=== PATIENT | male | born 1985 | race Caucasian/White ===

== ENCOUNTER 2019-06-10 10:23 | Emergency (ER) | payer BC ==
[2019-06-10] MEDS ORDERED: Hydromorphone 1 mg/ml Ampule IV ONE (10:31)
[2019-06-10] MEDS ORDERED: TORAdol 30 mg Injection IV ONE (10:32)
[2019-06-10] MEDS ORDERED: Ativan 0.5 MG PO ONE (10:32)
--- NOTE | 2019-06-10 10:36 | ERPHSYRPT ---
- History of Present Illness Time Seen by Provider: 06/10/19 10:33 Source: patient Physician History: mild to mod sudden lower back ache today after coughing, mowed the yard yesterday, hx lower back problems, see a chiropractor, no fever, no abdominal pain or incont, nonrad, seen by Dr Dwyer and received Norflex today Allergies/Adverse Reactions: No Known Drug Allergies Allergy (Unverified 06/10/19 10:42) - Review of Systems Constitutional: No Fever Respiratory: No Dyspnea Cardiac: No Chest Pain Abdominal/Gastrointestinal: No Abdominal Pain Genitourinary Symptoms: No Incontinence Musculoskeletal: Back Pain, No Neck Pain, No Deformity, No Fall Skin: No Rash Neurological: No Dizziness, No Focal Weakness - Past Medical History Neurological History: No Pertinent History Cardiac History: Hypertension Respiratory History: No Pertinent History Endocrine Medical History: No Pertinent History Musculoskeletal History: No Pertinent History Significant Family History: no pertinent family hx - Nursing Vital Signs Nursing Vital Signs: Initial Vital Signs Temperature 97.5 F 06/10/19 10:25 Pulse Rate 85 06/10/19 10:25 Respiratory Rate 20 06/10/19 10:25 Blood Pressure 111/64 06/10/19 10:25 O2 Sat by Pulse Oximetry 97 06/10/19 10:25 Pain Scale Pain Intensity 4 - Physical Exam General Appearance: no apparent distress Eye Exam: eyes nml inspection Neck Exam: normal inspection Respiratory Exam: No respiratory distress Cardiovascular Exam: normal peripheral pulses Gastrointestinal Exam: soft, No tenderness Back Exam: muscle spasm, No vertebral tenderness Extremity Exam: normal inspection Neurologic Exam: alert, oriented x 3, cooperative Skin Exam: normal color, warm, dry - Course Nursing assessment & vital signs reviewed: Yes - CT Exams Lumbar Spine CT Interpretation: Discussed w/radiologist, Other (L4 to S1 disc bulge) Ordered Tests: Active Orders 24 hr Category Date Time Status IV Insertion STAT Care 06/10/19 10:57 Active Saline Lock STAT Care 06/10/19 10:31 Active LUMBAR SPINE W/O [CT] Stat Exams 06/10/19 10:31 Completed Medication Summary Discontinued Medications Generic Name Dose Route Start Last Admin Trade Name Freq PRN Reason Stop Dose Admin Hydromorphone HCl 1 mg 06/10/19 10:31 06/10/19 10:50 Hydromorphone 1 Mg/Ml Ampule IV 06/10/19 10:32 1 mg STAT ONE Administration Hydromorphone HCl Confirm 06/10/19 10:46 Hydromorphone 1 Mg/Ml Ampule Administered 06/10/19 10:47 Dose 1 mg .ROUTE .STK-MED ONE Ketorolac Tromethamine 30 mg 06/10/19 10:32 06/10/19 10:50 Toradol 30 Mg Injection IV 06/10/19 10:33 30 mg STAT ONE Administration Ketorolac Tromethamine Confirm 06/10/19 10:44 Toradol 30 Mg Injection Administered 06/10/19 10:45 Dose 30 mg .ROUTE .STK-MED ONE Lorazepam 0.5 mg 06/10/19 10:32 06/10/19 10:51 Ativan 0.5 Mg PO 06/10/19 10:33 0.5 mg STAT ONE Administration Lorazepam Confirm 06/10/19 10:45 Ativan 1 Mg Administered 06/10/19 10:46 Dose 1 mg .ROUTE .STK-MED ONE - Progress Progress: unchanged, improved Progress Note: 06/10/19 11:41 motrin, ice rest, see your doctor, norco and ativan and dilaudid warnings given , return if worse - Departure Departure Disposition: Home Clinical Impression: Lumbar disc disease Condition: Stable Critical Care Time: No Referrals: DUANE DWYER MD [Primary Care Provider] - Instructions: Low Back Pain (DC) Prescriptions: Hydrocodone/APAP 5/325 [[place] 5/325 mg] 1 each PO Q4-6HPRN PRN #7 tablet MDD 4 PRN Reason: Moderate To Severe Pain
[2019-06-10] MEDS ORDERED: TORAdol 30 mg Injection ONE (10:44)
[2019-06-10] MEDS ORDERED: Ativan 1 MG ONE (10:45)
[2019-06-10] MEDS ORDERED: Hydromorphone 1 mg/ml Ampule ONE (10:46)
--- NOTE | 2019-06-10 11:30 | XRAY ---
Indication: Low back pain. Multiple contiguous axial images obtained through the lumbar spine. Sagittal and coronal reformatted images obtained. Comparison: None Axial negative for acute fracture, suspicious bony lesions, or spinal canal stenosis. L4-L5 disc level demonstrates mild annular disc bulge minimally effacing the thecal sac and producing minimal bilateral foraminal narrowing. Lesser minimal L5-S1 annular disc bulge without spinal canal or foraminal compromise. Remaining disc levels are unremarkable. Sagittal and coronal reformatted images demonstrates normal lumbar lordosis with minimal levoscoliosis centered at L4-L5. Vertebral body heights/disc spaces maintained. No compression fracture or subluxation. Visualized noncontrasted soft tissues unremarkable. Impression: L4-S1 annular disc bulge and levoscoliosis. Remaining CT lumbar spine is negative. CTDI 34.48
[2019-06-10 11:51] VITALS: BP 120/72; PULSE 75; O2SAT 95
== END 2019-06-10 11:51 | disposition home or self-care (01) ==
LOC: ED 10:23
DX: M51.86 Other intervertebral disc disorders, lumbar region (principal)
CPT/HCPCS: 36000; 72131; 96374; 96375; 99284; J1170; J1885; A9270-GY

== ENCOUNTER 2022-02-18 12:00 | Emergency (ER) | payer BC, OTHER ==
[2022-02-18 12:15] VITALS: BP 120/74
[2022-02-18] MEDS ORDERED: TORAdol 30 mg Injection IM ONE (12:18)
[2022-02-18] MEDS ORDERED: DECADRON 10MG INJ. IM ONE (12:18)
[2022-02-18] MEDS ORDERED: TORAdol 30 mg Injection ONE (12:22)
[2022-02-18] MEDS ORDERED: DECADRON 10MG INJ. ONE (12:22)
--- NOTE | 2022-02-18 12:56 | ERPHSYRPT ---
- History of Present Illness Time Seen by Provider: 02/18/22 12:10 Source: patient Exam Limitations: no limitations Patient Subjective Stated Complaint: pt states "I was brushing my teeth and bent down to wash my mouth when I heard a pop." Triage Nursing Assessment: pt came into the er via ambulance; pt is axo x4; c/o lower back pain; pt states 10/10 pain to lower back; pt denies radiating pain; pt states hx buldging disc; pt denies fall or injury to lower back; strong felicia pedal pulses; good cap refill to BLE; limited ROM to back; vitals wnl; pt received fentayl 100 mcg and 4 mg zofran enroute per medic Physician History: Patient is a 36-year-old male presents to our ED via EMS for evaluation of acute on chronic low back pain. Patient states he was at home brushing his teeth when he felt a pop in his back. Patient states he has a history of bulging disks. Patient rates his pain 10 out of 10. No radiation. No other complaints. No recent back procedures. No fever. No change in bowel bladder function. No saddle anesthesia. Pain described as an ache that is localized. Pain worsened with movement and palpation. Pain improved with rest. Patient voices no other complaints or concerns at this time. Timing/Duration: today Method of Injury: bending Quality: dull Back Pain Location: lumbar spine Severity of Pain-Max: moderate Severity of Pain-Current: moderate Modifying Factors: Improves With: movement Associated Symptoms: denies symptoms, No fever, No urinary incontinence, No loss of bowel control, No nausea, No vomiting, No problems urinating, No light- headedness, No dizziness, No sensory/motor loss, No tingling in legs/feet, No muscle spasms Previous symptoms: same symptoms as today Allergies/Adverse Reactions: No Known Drug Allergies Allergy (Verified 02/18/22 12:02) Home Medications: Atorvastatin Calcium [Lipitor 20MG Tablet] 20 mg PO DAILY 02/18/22 [History] Escitalopram Oxalate 10 mg [Lexapro 10 MG] 20 mg PO DAILY 02/18/22 [History] Fexofenadine HCl [Allergy Relief] 180 mg PO DAILY 02/18/22 [History] Lisinopril 10 mg [Zestril 10 MG] 10 mg PO DAILY 02/18/22 [History] Omeprazole 20 mg PO DAILY 02/18/22 [History] buPROPion HCl [Wellbutrin Sr] 150 mg PO DAILY 02/18/22 [History] Hx Tetanus, Diphtheria Vaccination/Date Given: Yes Hx Influenza Vaccination/Date Given: No Hx Pneumococcal Vaccination/Date Given: No Travel Risk - International Travel Have you traveled outside of the country in past 3 weeks: No - Coronavirus Screening Are you exhibiting any of the following symptoms?: No Close contact with a COVID-19 positive Pt in past 14-21 Days: No - Vaccine Status Have you recieved a Covid-19 vaccination: Yes 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: [employer] - Vaccination Dates Date of 2cond Vaccination (if applicable): unknown - Review of Systems Constitutional: No Symptoms, No Fever, No Chills Eyes: No Symptoms Ears, Nose, & Throat: No Symptoms Respiratory: No Symptoms, No Cough, No Dyspnea Cardiac: No Symptoms, No Chest Pain, No Edema, No Syncope Abdominal/Gastrointestinal: No Symptoms, No Abdominal Pain, No Nausea, No Vomi ting, No Diarrhea Genitourinary Symptoms: No Symptoms, No Dysuria Musculoskeletal: No Symptoms, No Back Pain, No Neck Pain Skin: No Symptoms, No Rash Neurological: No Symptoms, No Dizziness, No Focal Weakness, No Sensory Changes Psychological: No Symptoms Endocrine: No Symptoms Hematologic/Lymphatic: No Symptoms Immunological/Allergic: No Symptoms All Other Systems: Reviewed and Negative - Past Medical History Pertinent Past Medical History: Yes Neurological History: No Pertinent History Cardiac History: High Cholesterol, Hypertension Respiratory History: No Pertinent History Endocrine Medical History: No Pertinent History Musculoskeletal History: No Pertinent History GI Medical History: GERD History: No Pertinent History Psycho-Social History: Depression Male Reproductive Disorders: No Pertinent History Other Medical History: seasonal allergies - Past Surgical History Past Surgical History: Yes Neuro Surgical History: No Pertinent History Cardiac: No Pertinent History Respiratory: No Pertinent History Gastrointestinal: No Pertinent History Genitourinary: No Pertinent History Musculoskeletal: No Pertinent History Male Surgical History: No Pertinent History - Social History Smoking Status: Former smoker Exposure to second hand smoke: No Drug Use: none Patient Lives Alone: No Significant Family History: no pertinent family hx - Nursing Vital Signs Nursing Vital Signs: Initial Vital Signs Temperature 96.7 F 02/18/22 12:00 Pulse Rate 89 02/18/22 12:00 Respiratory Rate 20 02/18/22 12:00 Blood Pressure 120/74 02/18/22 12:00 O2 Sat by Pulse Oximetry 96 02/18/22 12:00 Pain Scale Pain Intensity [Lower Back] 10 Pain Intensity 8 - Physical Exam General Appearance: no apparent distress, alert Eye Exam: PERRL/EOMI, eyes nml inspection Ears, Nose, Throat Exam: normal ENT inspection, TMs normal, pharynx normal Neck Exam: normal inspection, non-tender, supple, full range of motion, No meningismus, No midline tenderness Respiratory Exam: normal breath sounds, lungs clear, airway intact, No respira tory distress Cardiovascular Exam: regular rate/rhythm, normal heart sounds, normal peripheral pulses Gastrointestinal Exam: soft, No tenderness, No mass Back Exam: normal inspection, normal range of motion, No CVA tenderness Extremity Exam: normal inspection, normal range of motion, No calf tenderness, No pedal edema Peripheral Pulses: dorsalis-pedis (R): 2+, dorsalis-pedis (L): 2+ Neurologic Exam: alert, oriented x 3, cooperative, 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 No soft tissue abnormalities.) Ordered Tests: Active Orders 24 hr Category Date Time Status LUMBAR COMPLETE (MIN 4 VIEWS) Stat Exams 02/18/22 12:17 Taken Medication Summary Discontinued Medications Generic Name Dose Route Start Last Admin Trade Name Eva PRN Reason Stop Dose Admin Dexamethasone Sodium Phosphate 6 mg 02/18/22 12:18 02/18/22 12:23 Dexamethasone Sod Phosphate 10 Mg/Ml IM 02/18/22 12:19 6 mg STAT ONE Administration Dexamethasone Sodium Phosphate Confirm 02/18/22 12:22 Dexamethasone Sod Phosphate 10 Mg/Ml Administered 02/18/22 12:23 Dose 10 mg .ROUTE .STK-MED ONE Ketorolac Tromethamine 30 mg 02/18/22 12:18 02/18/22 12:23 Ketorolac Tromethamine 30 Mg/Ml Inj IM 02/18/22 12:19 30 mg STAT ONE Administration Ketorolac Tromethamine Confirm 02/18/22 12:22 Ketorolac Tromethamine 30 Mg/Ml Inj Administered 02/18/22 12:23 Dose 30 mg .ROUTE .STK-MED ONE - Progress Progress: improved Progress Note: Patient reassessed. Pain improved. X-rays negative for acute pathology. Will discharge home. Patient agrees to follow-up with primary care doctor within 48 hours for evaluation. Portions of this note were created with voice recognition technology. There may be grammatical, spelling, punctuation or sound alike errors 02/18/22 14:00 Counseled pt/family regarding: lab results, diagnosis, need for follow-up, rad results - Departure Departure Disposition: Home Clinical Impression: Lumbosacral strain Condition: Stable Critical Care Time: No Referrals: DUANE DWYER MD [Primary Care Provider] - Follow up/PCP as directed Additional Instructions: Discharge/Care Plan JASON OROURKE was seen on 02/18/22 in the Emergency Room. The patient was counseled regarding Diagnosis,Lab results, Imaging studies, need for follow up and when to return to the Emergency Room. Prescriptions given: Discharge Note I have spoken with the patient and/or caregivers. I have explained the patient's condition, diagnosis and treatment plan based on the information available to me at this time. I have answered the patient's and/or caregiver's questions and a ddressed any concerns. The patient and/or caregivers have as good understanding of the patient's diagnosis, condition and treatment plan as can be expected at this point. The vital signs have been stable. The patient's condition is stable and appropriate for discharge from the emergency department. The patient will pursue further outpatient evaluation with the primary care physician or other designated or consulting physician as outlined in the discharge instructions. The patient and/or caregivers are agreeable to this plan of care and follow-up instructions have been explained in detail. The patient and/or caregivers have received these instruction. The patient/and or caregivers are aware that any significant change in condition or worsening of symptoms should prompt an immediate return to this or the closest emergency department or call 911.
[2022-02-18 14:18] VITALS: PULSE 83; O2SAT 98
--- NOTE | 2022-02-19 02:10 | XRAY ---
Exam: Five-view lumbar spine series from 02/18/2022. Comparison: No prior plain films of the lumbar spine. Indication: Complains of low back pain; no known injury. Findings: AP, lateral, both oblique images, and a coned-down lateral film of the lumbosacral junction were obtained. I note 5 [id number] lumbar-type vertebra. The right L1 transverse process is mildly enlarged and deformed, likely developmental/congenital. I also note a slight rotary convexity of the lumbar spine toward the left centered at L3-L4. The sacroiliac joints appear unremarkable. The pedicles are intact. The lumbar interspace heights are well-maintained. No acute fracture, AP subluxation, or spondylolysis is seen. Minimal anterior vertebral endplate spurring is seen at L4-L5 and L5-S1. Impression: 1. Mildly enlarged and deformed right L1 transverse process which appears to be an old finding and is likely congenital/developmental. 2. Slight rotary convexity of the lumbar spine toward the left centered at L3-L4. 3. No acute lumbar spine fracture, spondylolisthesis, or spondylolysis is seen. 4. The lumbar interspace heights are adequately maintained. I do see minimal anterior vertebral endplate spurring at L4-L5 and L5-S1.
== END 2022-02-18 14:25 | disposition home or self-care (01) ==
LOC: ED 12:00
DX: S39.012A Strain of muscle, fascia and tendon of lower back, initial encounter (principal); X50.1XXA Overexertion from prolonged static or awkward postures, initial encounter; Y93.E8 Activity, other personal hygiene; G89.29 Other chronic pain; M54.50 Low back pain, unspecified; E78.5 Hyperlipidemia, unspecified; I10 Essential (primary) hypertension
CPT/HCPCS: 36000; 72110; 96372; 99284; J1100; J1885

== ENCOUNTER 2022-07-09 06:04 | Day surgery (SDC) | payer BC, OTHER ==
[2022-07-09] MEDS ORDERED: Lactated Ringers 1,000 ML IV ONE (06:15)
[2022-07-09] MEDS ORDERED: DIPRIVAN 200 MG/20 ML IV ONE ×2 (06:46→07:41)
[2022-07-09] MEDS ORDERED: Xylocaine-Mpf 2% 5 Ml Vial ONE (06:46)
[2022-07-09] MEDS ORDERED: Lactated Ringers 1,000 ML IV SCH (07:00)
[2022-07-09 08:41] VITALS: BP 131/73; PULSE 79; O2SAT 98
--- NOTE | 2022-07-09 09:47 | OP ---
SURGERY DATE/TIME: 07/09/2022 0735 PREOPERATIVE DIAGNOSES: 1) Persistent gastroesophageal reflux disease. 2) Diarrhea. POSTOPERATIVE DIAGNOSES: 1) Small hiatal hernia. 2) Normal colon. PROCEDURES: 1) EGD. 2) Colonoscopy. SURGEON: Paresh Stover M.D. ANESTHESIA: MAC by Ambrose Ojeda CRNA. ESTIMATED BLOOD LOSS: None. SPECIMENS: None. DESCRIPTION OF PROCEDURE: After informed written consent was obtained, the patient was taken to the endoscopy suite. He was placed in left lateral decubitus position and a bite block was inserted. Anesthesia was titrated to the desired level of consciousness. The endoscope was inserted in the posterior oropharynx. Under direct visualization the esophagus was traversed. Esophageal mucosa had normal appearance with no lesions or defects. Upon entering the stomach there was normal rugated gastric mucosa. There was a small hiatal hernia at the gastroesophageal junction. Gastric antrum was free of any lesions or defects. The pylorus was traversed and had a normal mucosal appearance in the duodenum. Upon withdrawal again no other mucosal abnormalities were appreciable. The scope was removed and retroflexed. There was again small hiatal hernia with sliding. The esophagus again had a normal appearance. The scope was removed and the scopes were switched. Digital rectal exam showed normal sphincter tone and no internal lesions. The scope was inserted in the rectum and sequentially the entire colonic mucosa was traversed. The level of the cecum was reached and verified with direct visualization of the ileocecal valve. Upon withdrawal careful mucosal inspection revealed no gross abnormalities. Prior to withdrawal retroflexion was performed and showed no internal lesions. The scope was removed and the patient was transferred to the recovery room in good condition.
== END 2022-07-09 08:50 | disposition home or self-care (01) ==
LOC: SDC 06:04
PROVIDERS: ATTEND Family Medicine
DX: K44.9 Diaphragmatic hernia without obstruction or gangrene (principal); K21.9 Gastro-esophageal reflux disease without esophagitis; R19.7 Diarrhea, unspecified
CPT/HCPCS: J2704